=== PATIENT | female | born 1990 | race Two or more races ===

== ENCOUNTER → 2018-03-19 | Outpatient (CLI) | payer OTHER | END | disposition home or self-care (01) | LOC: LAB 14:41 | PROVIDERS: ATTEND Preventive Medicine Preventive Medicine/Occupational Environmental Medicine | DX: Z02.1 Encounter for pre-employment examination (principal) | CPT/HCPCS: 86787 ==

== ENCOUNTER → 2020-02-09 | Outpatient (CLI) | payer BC ==
[2020-02-09 11:22] LABS: Basophils # (auto) 0.1 10 ^3/uL (0-0.2); Basophils % (auto) 0.7 % (0.0-2.0); Eosinophils # (auto) 0.1 10 ^3/uL (0-0.8); Eosinophils % (auto) 1.1 % (0.0-7.0); Hematocrit 41.2 % (36.0-46.0); Hemoglobin 14.4 g/dL (12.2-16.2); Lymphocytes # (auto) 1.6 10 ^3/uL (0.4-5.4); Lymphocytes % (auto) 16.3 % (10.0-50.0); Mean Corpuscular Hemoglobin 29.9 pg (28.0-32.0); Mean Corpuscular Hgb Conc. 34.9 g/dL (32.0-36.0); Mean Corpuscular Volume 85.8 fL (80.0-100.0); Monocytes # (auto) 0.5 10 ^3/uL (0-1.3); Monocytes % (auto) 5.1 % (0.0-12.0); Neutrophils # (auto) 7.6 10 ^3/uL (1.6-8.6); Neutrophils % (auto) 76.8 % (37.0-80.0); Platelet Count (auto) 267 10^3/uL (140-450); Red Blood Cells 4.81 10^6/uL (4.0-5.20); Red Cell Distribution Width 12.9 % (11.8-14.3); White Blood Cell 9.9 10^3/uL (4.4-10.8)
[2020-02-09 11:50] LABS: Alcohol, Urine < 3.0 mg/dL (0-5); Amphetamine Screen, Urine NEGATIVE (NEGATIVE); Barbiturate Scree,Urine NEGATIVE (NEGATIVE); Benzodiazephine Screen, Urine NEGATIVE (NEGATIVE); Cannabinoid Screen, Urine NEGATIVE (NEGATIVE); Cocaine Screen, Urine NEGATIVE (NEGATIVE); Opiate Scree,Urine NEGATIVE (NEGATIVE); Phencyclidine Screen, Urine NEGATIVE (NEGATIVE)
[2020-02-10 04:07] LABS: RPR Non Reactive (Non Reactive)
== END | disposition home or self-care (01) ==
LOC: LAB 10:49
PROVIDERS: ATTEND Specialist
DX: Z34.81 Encounter for supervision of other normal pregnancy, first trimester (principal); Z31.430 Encounter of female for testing for genetic disease carrier status for procreative management; Z36.9 Encounter for antenatal screening, unspecified; Z3A.10 10 weeks gestation of pregnancy
CPT/HCPCS: 36415; 80307; 81220; 83036; 84144; 84702; 85025; 86592; 86703; 86762; 86765; 86850; 86900; 86901; 87086; 87340

== ENCOUNTER 2020-07-28 14:22 | Observation (INO) | payer BC ==
[~2020-07-28] VITALS: Ht 152.4 cm; Wt 68.0 kg
== END 2020-07-28 15:45 | disposition home or self-care (01) ==
LOC: LDRP 14:22
PROVIDERS: ADMIT Specialist; ATTEND Specialist
DX: O13.3 Gestational [pregnancy-induced] hypertension without significant proteinuria, third trimester (principal); O62.9 Abnormality of forces of labor, unspecified; O26.03 Excessive weight gain in pregnancy, third trimester; Z3A.34 34 weeks gestation of pregnancy
CPT/HCPCS: 59025; 76818; 81002; G0378

== ENCOUNTER 2020-08-04 09:37 | Observation (INO) | payer BC ==
[2020-08-04] MEDS ORDERED: PREN-96 PO (10:29)
== END 2020-08-04 10:38 | disposition home or self-care (01) ==
LOC: LDRP 09:37
PROVIDERS: ADMIT Obstetrics & Gynecology; ATTEND Obstetrics & Gynecology
DX: O36.5930 Maternal care for other known or suspected poor fetal growth, third trimester, not applicable or unspecified (principal); Z3A.35 35 weeks gestation of pregnancy
CPT/HCPCS: 59025; 76818; 81002; G0378

== ENCOUNTER 2020-08-11 08:50 | Observation (INO) | payer BC ==
[~2020-08-11 08:50] MED LIST: PREN-96 PO
== END 2020-08-11 09:22 | disposition home or self-care (01) ==
LOC: LDRP 08:50
PROVIDERS: ADMIT Specialist; ATTEND Specialist
DX: O26.13 Low weight gain in pregnancy, third trimester (principal); Z3A.36 36 weeks gestation of pregnancy
CPT/HCPCS: 59025; 76818; 81002; G0378

== ENCOUNTER 2020-08-12 04:46 | Inpatient (IN) | payer BC ==
[~2020-08-12] VITALS: Ht 152.4 cm; Wt 68.9 kg
[2020-08-12] MEDS ORDERED: LIDOCAINE 2%HCL (LOCAL ANESTH.) INJ 20ML MDV ID ONE ×2 (07:00→08:00)
[2020-08-12] MEDS ORDERED: METHYLERGONOVINE MALEATE 0.2 MG/ML AMP IM PRN (07:00)
[2020-08-12] MEDS ORDERED: PENICILLIN G POT 5MIL/D5 50ML 50 ML IV ONE (07:00)
[2020-08-12] MEDS ORDERED: LACT. RINGERS/OXYTOCIN 20UNITS 1,000 ML IV SCH (07:15)
[2020-08-12 07:32] LABS: Urine Bacteria FEW /hpf (None Seen); Urine Blood TRACE /uL (Negative); Urine Mucus FEW (None Seen); Urine Specific Gravity 1.012 (1.001-1.035); Urine WBC 1 /hpf (0 - 5)
[2020-08-12] MEDS: LACTATED RINGER'S 1,000 ML IV SCH ×2 (07:32→08:02)
[2020-08-12 07:39] LABS: Basophils # (auto) 0 10 ^3/uL (0-0.2); Basophils % (auto) 0.5 % (0.0-2.0); Eosinophils # (auto) 0.1 10 ^3/uL (0-0.8); Eosinophils % (auto) 0.9 % (0.0-7.0); Hematocrit 35.7 % (36.0-46.0); Hemoglobin 12.2 g/dL (12.2-16.2); Lymphocytes # (auto) 4.9 10 ^3/uL (0.4-5.4); Lymphocytes % (auto) 51.7 % (10.0-50.0); Mean Corpuscular Hemoglobin 28.2 pg (28.0-32.0); Mean Corpuscular Hgb Conc. 34.1 g/dL (32.0-36.0); Mean Corpuscular Volume 82.6 fL (80.0-100.0); Monocytes # (auto) 0.8 10 ^3/uL (0-1.3); Monocytes % (auto) 8.1 % (0.0-12.0); Neutrophils # (auto) 3.7 10 ^3/uL (1.6-8.6); Neutrophils % (auto) 38.8 % (37.0-80.0); Nucleated Red Blood Cells % 0.2 %; Platelet Count (auto) 222 10^3/uL (140-450); Red Blood Cells 4.32 10^6/uL (4.0-5.20); White Blood Cell 9.5 10^3/uL (4.4-10.8)
[2020-08-12 07:48] LABS: Calcium 8.8 mg/dL (8.5-10.1); Potassium 3.6 mmol/L (3.5-5.1)
[2020-08-12 07:49] LABS: INR 0.9 (0.9-1.15); Partial Thromboplastin Time 26.5 sec (23.0-31.2)
[2020-08-12 07:50] LABS: Alcohol, Urine < 3.0 mg/dL (0-10); Amphetamine Screen, Urine NEGATIVE (NEGATIVE); Barbiturate Scree,Urine NEGATIVE (NEGATIVE); Benzodiazephine Screen, Urine NEGATIVE (NEGATIVE); Cannabinoid Screen, Urine NEGATIVE (NEGATIVE); Cocaine Screen, Urine NEGATIVE (NEGATIVE); Opiate Scree,Urine NEGATIVE (NEGATIVE); Phencyclidine Screen, Urine NEGATIVE (NEGATIVE)
[2020-08-12 07:52] LABS: BUN/Creatinine Ratio 12.7; Bilirubin, Total 0.3 mg/dL (0.2-1.0); Total Protein 6.9 g/dL (6.4-8.2)
[2020-08-12] MEDS ORDERED: DERMOPLAST 60ML BOTTLE TOP PRN (08:00)
[2020-08-12] MEDS ORDERED: PHISODERM TOP SOLN 240ML BTL TOP PRN (08:00)
[2020-08-12] MEDS ORDERED: WITCH HAZEL-GLYCERIN PAD TOP PRN (08:00)
[2020-08-12] MEDS ORDERED: fentaNYL 400mCg/200ml W ROPIVA 200 ML EPI SCH (08:15)
[2020-08-12] MEDS ORDERED: NALOXONE HCL 0.4 MG/ML VIAL IV ONE (08:15)
[2020-08-12] MEDS ORDERED: ePHEDrine SULFATE 50 MG/ML AMP IV ONE (08:15)
[2020-08-12] MEDS ORDERED: ROPIVACAINE HCL 100 ML EPI SCH ×2 (08:30→08:45)
[2020-08-12] MEDS ORDERED: fentaNYL CITRATE 100 MCG/2 ML VL IV ONE (08:30)
[2020-08-12] MEDS ORDERED: PENICILLIN G POTASSIUM 2,500,000 UNITS in D5W 5% 50 ML IV SCH (11:00)
[2020-08-12] MEDS ORDERED: IBUPROFEN 600 MG TAB PO PRN (13:15)
[2020-08-12] MEDS ORDERED: LACT. RINGERS/OXYTOCIN 20UNITS 1,000 ML IV ONE (13:30)
--- NOTE | 2020-08-12 15:10 | NUR ---
Ambulation: Patient OOB with standby assistance by RN. Patient ambulated to bathroom with steady gait. Patient able to void 900ml without difficulty. Pericare teaching provided with returned demonstration by patient. Clean gown provided and bed linen changed. Patient ambulated back to bed with steady gait and no distress noted.
[2020-08-12] MEDS ORDERED: TETANUS-DIPTH-ACEL PERTUSSIS 0.5ML SYR Tdap IM ONE (17:15)
[2020-08-12 19:00] VITALS: BP 133/88
[2020-08-12 23:00] VITALS: BP 120/75
[2020-08-13 03:00] VITALS: BP 118/72
[2020-08-13 05:07] LABS: RPR Non Reactive (Non Reactive)
--- NOTE | 2020-08-13 06:31 | NUR ---
IV removal IV DC'd with sterile technique, catheter fully intact. Pressure dressing applied to site. Patient tolerated procedure well.
[2020-08-13 06:49] VITALS: BP 122/77
[2020-08-13 14:59] VITALS: BP 130/80
--- NOTE | 2020-08-13 15:08 | NUR ---
Discharge: Discharge instructions given as ordered. Pt encouraged to follow up with [facility] as instructed. All questions and concerns addressed. Patient verbalized understanding. Medication reconciliation completed and copy given to patient. All required/requested vaccines given and copies of vaccinations given to patient. Patient encouraged to prepare to depart unit.
--- NOTE | 2020-08-13 17:23 | NUR ---
Discharge: Patient taken to vehicle ambulatory with all personal belongings, accompanied by staff and family member. No distress noted at time of departure, no adverse changes in status since initial assessment.
== END 2020-08-13 17:20 | disposition home or self-care (01) | DRG 807 ==
LOC: LDRP 04:46 → OBSVTOIN 06:30 → LDRP 07:14
PROVIDERS: ADMIT Specialist; ATTEND Specialist
PROC: 10E0XZZ Delivery of Products of Conception, External Approach (ICD-10-PCS; principal; 2020-08-12)
PROC: 3E0R3BZ Introduction of Anesthetic Agent into Spinal Canal, Percutaneous Approach (ICD-10-PCS; 2020-08-12)
PROC: 00HU33Z Insertion of Infusion Device into Spinal Canal, Percutaneous Approach (ICD-10-PCS; 2020-08-12)
DX: O42.02 Full-term premature rupture of membranes, onset of labor within 24 hours of rupture (principal); Z37.0 Single live birth; O76 Abnormality in fetal heart rate and rhythm complicating labor and delivery; Z82.49 Family history of ischemic heart disease and other diseases of the circulatory system; Z20.828 Contact with and (suspected) exposure to other viral communicable diseases; Z3A.37 37 weeks gestation of pregnancy
CPT/HCPCS: 36415; 59025; 59409; 62282; 80053; 80307; 81001; 81002; 84112; 85025; 85610; 85730; 86592; 86850; 86900; 86901; 87426; 90715; 94760; 96360; 96361; 96365; 96366; 96372; G0378; J2540; J2590; J7060

== ENCOUNTER → 2020-10-27 | Outpatient (CLI) | payer BC | END | disposition home or self-care (01) | LOC: LAB 10:38 | PROVIDERS: ATTEND Specialist | DX: A60.9 Anogenital herpesviral infection, unspecified (principal) | CPT/HCPCS: 86695; 86696 ==